=== PATIENT | male | born 1935 | race Caucasian/White ===

== ENCOUNTER 2018-03-29 16:22 | Inpatient (IN) | payer MEDICARE, OTHER ==
[~2018-03-29] VITALS: Ht 177.8 cm; Wt 87.0 kg
[~2018-03-29 16:22] MED LIST: ASPI81TA27 PO; METF-370 PO
[2018-03-29] MEDS ORDERED: SODIUM CHLORIDE 0.9% 1,000 ML IV ONE (16:33)
[2018-03-29 18:02] LABS: Basophils # (auto) 0 uL; Eosinophils # (auto) 0.1 uL; Eosinophils % (auto) 3.9 % (0.0-7.0); Hematocrit 28.8 % (41.0-53.0); Hemoglobin 9.7 g/dL (13.5-17.5); Mean Corpuscular Hgb Conc. 33.8 g/dL (32.0-36.0); Monocytes # (auto) 0.3 uL; Neutrophils # (auto) 1.7 uL; Red Blood Cells 2.78 10^6/uL (4.5-5.90); White Blood Cell 2.4 10^3/uL (4.4-10.8)
[2018-03-29 18:04] LABS: Basophils % (auto) 0.8 % (0.0-2.0); Lymphocytes # (auto) 0.3 uL; Lymphocytes % (auto) 10.9 % (10.0-50.0); Mean Corpuscular Volume 103.6 fL (80.0-100.0); Monocytes % (auto) 13.2 % (0.0-12.0); Neutrophils % (auto) 71.2 % (37.0-80.0); Nucleated Red Blood Cells % 0.1 %; Platelet Count (auto) 170 10^3/uL (140-450); Red Cell Distribution Width 14.7 % (11.8-14.3)
[2018-03-29 18:17] LABS: INR 1.02 (0.9-1.15); Partial Thromboplastin Time 26.6 sec (23.78-33.04); Prothrombin Time 10.9 sec (9.27-12.13)
[2018-03-29 18:29] LABS: Albumin 3.5 g/dL (3.4-5.0); Anion Gap 11 (5-15); Blood Urea Nitrogen 26 mg/dL (7-18); Calcium 7.5 mg/dL (8.5-10.1); Carbon Dioxide 24 mmol/L (21-32); Chloride 111 mmol/L (98-107); Glucose 121 mg/dL (74-106); Potassium 3.6 mmol/L (3.5-5.1); Sodium 146 mmol/L (136-145)
[2018-03-29 18:31] LABS: BUN/Creatinine Ratio 21.5; GFR African American 74 mL/min; GFR Non-African American 61 mL/min
[2018-03-29 18:33] LABS: Alanine Aminotransferase 19 U/L (16-61); Alkaline Phosphatase 139 U/L (45-117); Aspartate Aminotransferase 20 U/L (15-37); Bilirubin, Total 0.2 mg/dL (0.2-1.0); Total Protein 6.3 g/dL (6.4-8.2)
[2018-03-29] MEDS ORDERED: ACETAMINOPHEN 500 MG TAB PO PRN (23:30)
[2018-03-29] MEDS ORDERED: ONDANSETRON HCL 4 MG/2 ML VIAL IV PRN (23:30)
[2018-03-30] VITALS (7 sets, daily range): BP systolic 93–142; BP diastolic 48–75
[2018-03-30] MEDS: MORPHINE SULFATE 4 MG/ML SYR/VIAL IV PRN (01:18)
[2018-03-30 11:46] LABS: Basophils # (auto) 0 uL; Eosinophils # (auto) 0.1 uL; Hemoglobin 9.1 g/dL (13.5-17.5); Lymphocytes # (auto) 0.2 uL; Monocytes # (auto) 0.2 uL
[2018-03-30 11:49] LABS: Basophils % (auto) 0.6 % (0.0-2.0); Hematocrit 26.3 % (41.0-53.0); Lymphocytes % (auto) 9.2 % (10.0-50.0); Mean Corpuscular Hemoglobin 35.8 pg (28.0-32.0); Mean Corpuscular Hgb Conc. 34.6 g/dL (32.0-36.0); Mean Corpuscular Volume 103.3 fL (80.0-100.0); Monocytes % (auto) 14.3 % (0.0-12.0); Neutrophils # (auto) 1.2 uL; Neutrophils % (auto) 71.9 % (37.0-80.0); Platelet Count (auto) 145 10^3/uL (140-450); Red Blood Cells 2.55 10^6/uL (4.5-5.90); Red Cell Distribution Width 14.7 % (11.8-14.3)
[2018-03-30 11:58] LABS: White Blood Cell 1.7 10^3/uL (4.4-10.8)
[2018-03-30 11:59] LABS: Potassium 4.1 mmol/L (3.5-5.1)
[2018-03-30 12:00] LABS: BUN/Creatinine Ratio 20.2; Calcium 8.1 mg/dL (8.5-10.1)
[2018-03-30] MEDS: HYDROcodone-ACET 5/325MG TAB PO PRN (21:27)
[2018-03-31 05:16] VITALS: BP 110/58
[2018-03-31 09:00] VITALS: BP 130/82
[2018-03-31 10:32] LABS: Basophils # (auto) 0 uL; Eosinophils # (auto) 0.1 uL; Hemoglobin 9.9 g/dL (13.5-17.5); Lymphocytes # (auto) 0.2 uL; Monocytes # (auto) 0.3 uL; Neutrophils # (auto) 1.5 uL; Platelet Count (auto) 153 10^3/uL (140-450); Red Blood Cells 2.87 10^6/uL (4.5-5.90); White Blood Cell 2.1 10^3/uL (4.4-10.8)
[2018-03-31 10:34] LABS: Basophils % (auto) 0.8 % (0.0-2.0); Eosinophils % (auto) 4.3 % (0.0-7.0); Hematocrit 29.2 % (41.0-53.0); Lymphocytes % (auto) 9.6 % (10.0-50.0); Mean Corpuscular Hemoglobin 34.7 pg (28.0-32.0); Mean Corpuscular Hgb Conc. 34.1 g/dL (32.0-36.0); Mean Corpuscular Volume 101.8 fL (80.0-100.0); Monocytes % (auto) 14.1 % (0.0-12.0); Neutrophils % (auto) 71.2 % (37.0-80.0); Red Cell Distribution Width 14.9 % (11.8-14.3)
[2018-03-31 10:46] LABS: Albumin 3.3 g/dL (3.4-5.0); BUN/Creatinine Ratio 20.3; Potassium 4.2 mmol/L (3.5-5.1)
[2018-03-31 10:49] LABS: Bilirubin, Total 0.2 mg/dL (0.2-1.0)
[2018-03-31 13:00] VITALS: BP 113/67
[2018-03-31 17:00] VITALS: BP 136/71
[2018-03-31] MEDS: FILGRASTIM(TBO) 480 MCG/0.8 ML SYRG SC SCH (17:47)
[2018-03-31 22:00] VITALS: BP 112/68
[2018-04-01 05:00] VITALS: BP 103/70
[2018-04-01 07:05] LABS: Basophils # (auto) 0 uL; Basophils % (auto) 0.5 % (0.0-2.0); Eosinophils # (auto) 0.1 uL; Hemoglobin 10.1 g/dL (13.5-17.5); Lymphocytes # (auto) 0.2 uL; Mean Corpuscular Hemoglobin 34.6 pg (28.0-32.0); Mean Corpuscular Volume 102.6 fL (80.0-100.0); White Blood Cell 6.8 10^3/uL (4.4-10.8)
[2018-04-01 07:08] LABS: Eosinophils % (auto) 1.5 % (0.0-7.0); Hematocrit 29.9 % (41.0-53.0); Lymphocytes % (auto) 3.5 % (10.0-50.0); Mean Corpuscular Hgb Conc. 33.8 g/dL (32.0-36.0); Monocytes # (auto) 0.6 uL; Monocytes % (auto) 9.2 % (0.0-12.0); Neutrophils # (auto) 5.8 uL; Neutrophils % (auto) 85.3 % (37.0-80.0); Platelet Count (auto) 149 10^3/uL (140-450); Red Blood Cells 2.92 10^6/uL (4.5-5.90)
[2018-04-01 07:21] LABS: Albumin 3.3 g/dL (3.4-5.0); Calcium 8.3 mg/dL (8.5-10.1); Potassium 4.2 mmol/L (3.5-5.1)
[2018-04-01 07:24] LABS: BUN/Creatinine Ratio 22.6; Bilirubin, Total 0.3 mg/dL (0.2-1.0)
[2018-04-01 09:17] VITALS: BP 106/65
[2018-04-01] MEDS: SODIUM CHLORIDE 0.9% 1,000 ML IV SCH ×2 (10:12→20:01)
[2018-04-01] MEDS: FILGRASTIM(TBO) 480 MCG/0.8 ML SYRG SC SCH (11:28)
[2018-04-01 13:33] VITALS: BP 126/74
[2018-04-01] MEDS ORDERED: ceFAZolin 1GM/50ML 50 ML IV ONE ×2 (13:36→14:30)
[2018-04-01] MEDS ORDERED: TETRACAINE 1% INJ 2 ML VIAL IJ ONE (13:47)
[2018-04-01] MEDS ORDERED: fentaNYL CITRATE 100 MCG/2 ML VL ONE (13:50)
[2018-04-01] MEDS ORDERED: PROPOFOL 10 MG/ML 20 ML IV ONE (13:50)
[2018-04-01] MEDS ORDERED: MORPHINE SULF(PF) 0.5MG/ML 10ML VIAL ONE (13:50)
[2018-04-01] MEDS ORDERED: MIDAZOLAM HCL 1MG/1ML-2 ML VIAL ONE ×2 (13:50→14:11)
[2018-04-01 16:50] VITALS: BP 125/52
[2018-04-01] MEDS: MORPHINE SULFATE 4 MG/ML SYR/VIAL IV PRN (20:01)
[2018-04-01] MEDS: ceFAZolin 1GM/50ML 50 ML IV SCH (21:38)
[2018-04-01] MEDS: HYDROcodone-ACET 5/325MG TAB PO PRN (21:39)
[2018-04-01 21:46] VITALS: BP 131/62
[2018-04-02] MEDS: MORPHINE SULFATE 4 MG/ML SYR/VIAL IV PRN ×2 (02:37→06:44)
[2018-04-02 04:34] VITALS: BP 107/60
[2018-04-02] MEDS: SODIUM CHLORIDE 0.9% 1,000 ML IV SCH ×2 (06:19→16:43)
[2018-04-02] MEDS: ceFAZolin 1GM/50ML 50 ML IV SCH ×3 (06:20→21:23)
[2018-04-02 06:31] LABS: Basophils # (auto) 0 uL; Eosinophils # (auto) 0.1 uL; Eosinophils % (auto) 1.3 % (0.0-7.0); Lymphocytes # (auto) 0.2 uL; Monocytes # (auto) 0.7 uL
[2018-04-02 06:34] LABS: Basophils % (auto) 0.3 % (0.0-2.0); Hematocrit 26.6 % (41.0-53.0); Hemoglobin 9.1 g/dL (13.5-17.5); Lymphocytes % (auto) 2.3 % (10.0-50.0); Mean Corpuscular Hemoglobin 35.3 pg (28.0-32.0); Mean Corpuscular Hgb Conc. 34.2 g/dL (32.0-36.0); Mean Corpuscular Volume 103.4 fL (80.0-100.0); Monocytes % (auto) 9.2 % (0.0-12.0); Neutrophils # (auto) 6.7 uL; Neutrophils % (auto) 86.9 % (37.0-80.0); Red Blood Cells 2.57 10^6/uL (4.5-5.90); Red Cell Distribution Width 14.8 % (11.8-14.3); White Blood Cell 7.7 10^3/uL (4.4-10.8)
[2018-04-02 06:38] LABS: Platelet Count (auto) 135 10^3/uL (140-450)
[2018-04-02 06:56] LABS: Potassium 4.2 mmol/L (3.5-5.1)
[2018-04-02 07:03] LABS: BUN/Creatinine Ratio 19.3; Bilirubin, Total 0.3 mg/dL (0.2-1.0); Calcium 7.9 mg/dL (8.5-10.1); Total Protein 5.4 g/dL (6.4-8.2)
[2018-04-02 08:00] VITALS: BP 117/45
[2018-04-02] MEDS: FILGRASTIM(TBO) 480 MCG/0.8 ML SYRG SC SCH (10:11)
[2018-04-02] MEDS: HYDROcodone-ACET 5/325MG TAB PO PRN (11:50)
[2018-04-02 12:00] VITALS: BP 108/62
[2018-04-02] MEDS ORDERED: ENOXAPARIN SOD 40 MG/0.4 ML SYRINGE SC ONE (12:00)
[2018-04-02 16:00] VITALS: BP 106/62
[2018-04-02 22:00] VITALS: BP 114/60
[2018-04-03] MEDS: SODIUM CHLORIDE 0.9% 1,000 ML IV SCH (03:07)
[2018-04-03 05:00] VITALS: BP 128/53
[2018-04-03] MEDS: ceFAZolin 1GM/50ML 50 ML IV SCH ×2 (05:57→13:23)
[2018-04-03] MEDS: HYDROcodone-ACET 5/325MG TAB PO PRN ×2 (05:58→13:22)
[2018-04-03 07:28] LABS: Hematocrit 25.6 % (41.0-53.0); Hemoglobin 8.6 g/dL (13.5-17.5)
[2018-04-03 09:00] VITALS: BP 135/50
[2018-04-03] MEDS: ENOXAPARIN SOD 40 MG/0.4 ML SYRINGE SC SCH (09:52)
[2018-04-03] MEDS: FILGRASTIM(TBO) 480 MCG/0.8 ML SYRG SC SCH (09:53)
[2018-04-03 13:00] VITALS: BP 112/52
[2018-04-03 17:00] VITALS: BP 112/79
[2018-04-03 22:00] VITALS: BP 105/55
[2018-04-04 05:00] VITALS: BP 127/65
[2018-04-04 05:48] LABS: Hemoglobin 8.9 g/dL (13.5-17.5)
[2018-04-04 05:49] LABS: Hematocrit 25.9 % (41.0-53.0); Mean Corpuscular Hemoglobin 35.8 pg (28.0-32.0); Mean Corpuscular Hgb Conc. 34.4 g/dL (32.0-36.0); Mean Corpuscular Volume 104.3 fL (80.0-100.0); Platelet Count (auto) 125 10^3/uL (140-450); Red Blood Cells 2.48 10^6/uL (4.5-5.90); Red Cell Distribution Width 14.8 % (11.8-14.3); White Blood Cell 9.1 10^3/uL (4.4-10.8)
[2018-04-04 06:08] LABS: Basophils % (manual) 0 (0.0-2.0); Blast Cells 0; Promyelocytes % 0; Reactive Lymphocytes 0
[2018-04-04 07:01] LABS: Band Neutrophils % (manual) 6; Eosinophils % (manual) 4 (0-7); Lymphocytes % (manual) 7 (10.0-50.0); Monocytes % (manual) 8 (0-12)
[2018-04-04 07:02] LABS: Metamyelocytes % 0; Myelocytes % 2
[2018-04-04 09:00] VITALS: BP 125/54
[2018-04-04] MEDS: ENOXAPARIN SOD 40 MG/0.4 ML SYRINGE SC SCH (09:38)
[2018-04-04 13:00] VITALS: BP 120/59
[2018-04-04 17:00] VITALS: BP 119/48
[2018-04-04 22:00] VITALS: BP 124/69
[2018-04-05 05:00] VITALS: BP 129/59
[2018-04-05 09:00] VITALS: BP 134/60
[2018-04-05 10:54] LABS: Hemoglobin 8.9 g/dL (13.5-17.5)
[2018-04-05 10:56] LABS: Hematocrit 26.6 % (41.0-53.0)
[2018-04-05] MEDS: HYDROcodone-ACET 5/325MG TAB PO PRN (11:56)
[2018-04-05] MEDS: ENOXAPARIN SOD 40 MG/0.4 ML SYRINGE SC SCH (11:56)
[2018-04-05 13:00] VITALS: BP 133/64
[2018-04-05 17:00] VITALS: BP 102/49
== END 2018-04-05 19:20 | DRG 481 ==
LOC: ER 16:24 → OVERFLOW 16:25 → WEST WING 23:51
PROVIDERS: ADMIT Nurse Practitioner Family; ATTEND Family Medicine
PROC: 0QH706Z Insertion of Intramedullary Internal Fixation Device into Left Upper Femur, Open Approach (ICD-10-PCS; principal; 2018-04-01 13:58)
DX: M84.452A Pathological fracture, left femur, initial encounter for fracture (principal); C78.7 Secondary malignant neoplasm of liver and intrahepatic bile duct; C79.51 Secondary malignant neoplasm of bone; E87.1 Hypo-osmolality and hyponatremia; C79.31 Secondary malignant neoplasm of brain; D63.0 Anemia in neoplastic disease; E11.9 Type 2 diabetes mellitus without complications; Z96.651 Presence of right artificial knee joint; Z79.84 Long term (current) use of oral hypoglycemic drugs; Z85.118 Personal history of other malignant neoplasm of bronchus and lung; Z92.21 Personal history of antineoplastic chemotherapy; Z79.899 Other long term (current) drug therapy; Z79.82 Long term (current) use of aspirin
CPT/HCPCS: 36415; 71045; 73502; 80048; 80053; 83036; 84484; 85007; 85014; 85018; 85025; 85027; 85610; 85730; 86850; 86900; 86901; 96361; 96374; 96375; 97110; 97116; 97163; 97530; A6257; J0690; J1447; J1642; J2250; J2405; J2704